=== PATIENT | male | born 1965 | race Caucasian/White ===

== ENCOUNTER 2018-06-15 16:16 | Emergency (ER) | payer OTHER ==
[2018-06-15] MEDS: DEXAMETHASONE 4 MG TAB PO (18:56)
[2018-06-15] MEDS: KETOROLAC 60 MG INJ IM (18:57)
== END 2018-06-15 19:01 | disposition home or self-care (01) ==
LOC: FTE 16:16
DX: M10.9 Gout, unspecified (principal); I10 Essential (primary) hypertension
CPT/HCPCS: 96372; 99284-25

== ENCOUNTER 2018-07-14 21:36 | Emergency (ER) | payer OTHER ==
[2018-07-15] MEDS: HYDROCODONE/APAP (5/325) TAB PO (00:28)
== END 2018-07-15 02:12 | disposition home or self-care (01) ==
LOC: FTE 21:36
DX: M10.9 Gout, unspecified (principal)
CPT/HCPCS: 73610; 99283-25